=== PATIENT | female | born 1980 | race Caucasian/White ===

== ENCOUNTER 2019-07-17 15:15 | Emergency (ER) | payer BC ==
[2019-07-17] MEDS ORDERED: methylPREDNISolone Sodium Succinate 125 MG/2 ML SDV IV ONE (15:32)
[2019-07-17] MEDS ORDERED: diphenhydrAMINE 50 MG/ML SDV IVPUSH ONE (15:32)
[2019-07-17 16:21] LABS: CHLORIDE,CL 102 mmol/L (54-184); SODIUM,NA 141 mmol/L (69-191)
[2019-07-17 16:22] LABS: ANION GAP 15.7 mmol/L (10-20)
--- NOTE | 2019-07-17 17:04 | EDM.PDOC ---
ED HPI GENERAL MEDICAL PROBLEM - General Chief Complaint: Allergic Reaction Stated Complaint: allergic reaction Time Seen by Provider: 07/17/19 15:20 Source of Information: Reports: Patient History Limitations: Reports: No Limitations - History of Present Illness INITIAL COMMENTS - FREE TEXT/NARRATIVE: Pt. presents to ER with complaints of possible allergic reaction. Pt. has a "midline" catheter placed in R upper arm so she can receive IV daptomycin and zosyn over the next 2 weeks. She states that when she was self-administering her antibiotics as now, she developed redness and irritation near the injection site. She states that she also felt somewhat short of breath. EMS was summoned. She was not wheezing. Denies any urticaria. No throat tightness. On arrival to ED, she was still experiencing some irritation at the injection site and continued shortness of breath/feeling of anxiety. Denies any chest pain. No nausea, vomiting, or diarrhea. She states that she did take the antibiotics last night and had some erythema immediately above the insertion site of the catheter as well. At that time, she had no systemic symptoms. She was able to complete both infusions without any serious symptoms. Onset: Today Location: Reports: Upper Extremity, Right Quality: Reports: Burning - Related Data Allergies Allergy/AdvReac Type Severity Reaction Status Date / Time codeine Allergy Nausea Verified 07/17/19 15:49 TB Serum Allergy Other Uncoded 07/17/19 15:49 Home Meds: Home Meds Aspirin 325 mg PO DAILY 07/17/19 [History] DAPTOmycin [Cubicin Rf] 750 mg IV Q24H 07/17/19 [History] Docusate Sodium [Colace] 100 mg PO BID 07/17/19 [History] Hydrocodone/Acetaminophen [Hydrocodon-Acetaminophen 5-325] 1 - 2 tab PO Q4H PRN 07/17/19 [History] Piperacillin/Tazobactam [Zosyn 3.375 GM] 3.375 gm IV Q8H 07/17/19 [History] Sennosides/Docusate Sodium [Senna-Docusate Sodium Tablet] 1 each PO BID PRN [History] Past Medical History Musculoskeletal History: Reports: Other (See Below) Other Musculoskeletal History: chronic left-sided low back pain with left-sided sciatica. rupture tendon, quadriceps, left subsequent encounter Endocrine/Metabolic History: Reports: Obesity/BMI 30+ Hematologic History: Reports: Anemia, Iron Deficiency Oncologic (Cancer) History: Reports: Other (See Below) Other Oncologic History: myxoid liposarcoma Dermatologic History: Reports: Other (See Below) Other Dermatologic History: pigmented skin lesion - Past Surgical History Female Surgical History: Reports: Section Social & Family History - Tobacco Use Smoking Status *Q: Former Smoker Used Tobacco, but Quit: Yes Month/Year Tobacco Last Used: January 2019 - Recreational Drug Use Recreational Drug Use: No ED ROS ALLERGIC REACTION - Review of Systems Review Of Systems: See Below Constitutional: Reports: No Symptoms HEENT: Reports: No Symptoms Respiratory: Reports: Shortness of Breath Cardiovascular: Reports: No Symptoms Endocrine: Reports: No Symptoms GI/Abdominal: Reports: No Symptoms : Reports: No Symptoms Musculoskeletal: Reports: Arm Pain Skin: Reports: No Symptoms Neurological: Reports: No Symptoms Psychiatric: Reports: No Symptoms Hematologic/Lymphatic: Reports: No Symptoms Immunologic: Reports: Other (?medication allergy) ED EXAM GENERAL NO PERIP PULSE - Physical Exam Exam: See Below Exam Limited By: No Limitations General Appearance: Alert, WD/WN Eye Exam: Bilateral Eye: EOMI, Normal Fundi, Normal Inspection, PERRL Throat/Mouth: Normal Inspection, Normal Lips, Normal Teeth, Normal Gums, Normal Oropharynx, Normal Voice, No Airway Compromise Neck: Normal Inspection, Supple, Non-Tender, Full Range of Motion Respiratory/Chest: No Respiratory Distress, Lungs Clear, Normal Breath Sounds, No Accessory Muscle Use, Chest Non-Tender Cardiovascular: Normal Peripheral Pulses, Regular Rate, Rhythm, No Edema, No Gallop, No JVD, No Murmur, No Rub GI/Abdominal: Soft, Non-Tender, No Organomegaly Extremities: Other (area of erythema approx. 6-8 cm above catheter insertion site. ) Skin Exam: Warm, Dry, Intact, Normal Color, No Rash Course - Vital Signs Last Recorded V/S: Last Vital Signs Temp 37.0 C 07/17/19 15:20 Pulse 74 07/17/19 15:20 Resp 16 07/17/19 15:20 BP 111/57 L 07/17/19 15:20 Pulse Ox 99 07/17/19 15:20 - Orders/Labs/Meds Labs: Laboratory Tests 07/17/19 07/17/19 Range/Units 15:57 15:57 WBC 7.1 (4.0-10.0) x10^3/uL RBC 4.35 (4.00-5.50) x10^6/uL Hgb 13.1 (12.0-16.0) g/dL Hct 38.7 (33.0-47.0) % MCV 89.0 (78.0-93.0) fL MCH 30.1 (26.0-32.0) pg MCHC 33.9 (32.0-36.0) g/dL RDW Coeff of Nadia 11.5 (10.0-15.0) % Plt Count 332 (130-400) x10^3/uL Neut % (Auto) 72.8 (50.0-80.0) % Lymph % (Auto) 11.2 L (25.0-50.0) % Laurens % (Auto) 8.3 (2.0-11.0) % Eos % (Auto) 7.4 H (0.0-4.0) % Baso % (Auto) 0.3 (0.2-1.2) % Sodium 141 (69-191) mmol/L Potassium 3.7 (1.5-9.9) mmol/L Chloride 102 (54-184) mmol/L Carbon Dioxide 27 (21-32) mmol/L Anion Gap 15.7 (10-20) mmol/L BUN 19 H (7-18) mg/dL Creatinine 0.9 (0.55-1.02) mg/dL Est Cr Clr Drug Dosing 96.42 mL/min Estimated GFR (MDRD) > 60 Glucose 105 (74-106) mg/dL Calcium 9.2 (8.5-10.1) mg/dL Corrected Calcium 9.84 (8.5-10.1) mg/dL Total Bilirubin 0.4 (0.2-1.0) mg/dL AST 10 L (15-37) U/L ALT 11 L (14-59) U/L Alkaline Phosphatase 106 (46-116) U/L Total Protein 7.8 (6.4-8.2) g/dL Albumin 3.2 L (3.4-5.0) g/dL Globulin 4.6 Albumin/Globulin Ratio 0.70 Meds: Medications Discontinued Medications Generic Name Dose Route Start Last Admin Trade Name Freq PRN Reason Stop Dose Admin Diphenhydramine HCl 50 mg 07/17/19 15:32 07/17/19 15:41 Benadryl IVPUSH 07/17/19 15:33 50 mg ONETIME ONE Administration Methylprednisolone Sodium Succinate 125 mg 07/17/19 15:32 07/17/19 15:47 Solu-Medrol IV 07/17/19 15:33 125 mg ONETIME ONE Administration Departure - Departure Time of Disposition: 15:26 Disposition: Home, Self-Care 01 Clinical Impression: Infected surgical wound - Discharge Information Referrals: Yarely Oh MD [Primary Care Provider] - Forms: ED Department Discharge Additional Instructions: Use peripheral IV for your antibiotics tonight. Follow-up at the PICC clinic at [facility] at 11:00 AM Keep wound clinic appointment later that afternoon. If you start to have shortness of breath, itching, lightheadedness, or feel like your throat feels tight, return to ER. - Assessment/Plan Plan: Contacted PICC nurse/infectious disease. The midline catheter should flush freely and is not. It is felt that the catheter is infiltrated and the redness is from this. The catheter was pulled. Pt. will be seen tomorrow at 11AM for placement of a PICC line and has an appointment with wound care at 1:30 PM. She will use the IV that was started today for her doses of antibiotics tonight and tomorrow AM. Pt. is to return if she has any shortness of breath, throat tightness, or trouble breathing.
== END 2019-07-17 17:25 | disposition home or self-care (01) ==
LOC: VM.ED 15:15
DX: T81.41XA Infection following a procedure, superficial incisional surgical site, initial encounter (principal); E66.9 Obesity, unspecified; Z88.5 Allergy status to narcotic agent; Z91.048 Other nonmedicinal substance allergy status; Z87.891 Personal history of nicotine dependence; Z79.82 Long term (current) use of aspirin; Y83.8 Other surgical procedures as the cause of abnormal reaction of the patient, or of later complication, without mention of misadventure at the time of the procedure
CPT/HCPCS: 36415; 80053; 85025; 96374; 96375; 99283; J1200; J2930

== ENCOUNTER 2022-11-06 07:33 | Day surgery (SDC) | payer OTHER ==
[~2022-11-06 07:33] MED LIST: Sodium Chloride 0.9% 10 ML Syringe FLUSH PRN
[2022-11-06] MEDS: Lactated Ringers 1,000 ML IV SCH (07:45)
[2022-11-06] MEDS ORDERED: fentaNYL 100 MCG/2 ML SDV ONE (08:36)
[2022-11-06] MEDS ORDERED: Propofol 200 MG/20 ML SDV ONE ×2 (08:36→09:42)
[2022-12-03] MEDS ORDERED: Lactated Ringers 1,000 ML IV SCH (07:00)
[2022-12-03] MEDS ORDERED: Sodium Chloride 0.9% 10 ML Syringe FLUSH PRN (07:00)
== END 2022-11-06 11:05 | disposition home or self-care (01) ==
LOC: VM.SDS 07:33
PROVIDERS: ATTEND Student in an Organized Health Care Education/Training Program
DX: D12.0 Benign neoplasm of cecum (principal); E66.09 Other obesity due to excess calories; F41.9 Anxiety disorder, unspecified; J45.909 Unspecified asthma, uncomplicated; Z98.890 Other specified postprocedural states; Z79.899 Other long term (current) drug therapy; Z88.5 Allergy status to narcotic agent; Z88.7 Allergy status to serum and vaccine; Z68.33 Body mass index [BMI] 33.0-33.9, adult; Z87.891 Personal history of nicotine dependence
CPT/HCPCS: 00811; J2704; J3010; J7120